=== PATIENT | female | born 1975 | race Caucasian/White ===

== ENCOUNTER → 2023-07-24 07:31 | Outpatient (REF) | payer OTHER, SELFPAY | LOC: PAVMRI 07:31 | PROVIDERS: ATTENDING PHYSICIAN Obstetrics & Gynecology; FAMILY PHYSICIAN Family Medicine | DX: D25.9 Leiomyoma of uterus, unspecified (principal); N92.0 Excessive and frequent menstruation with regular cycle | CPT/HCPCS: 72197; A9575 ==

== ENCOUNTER → 2023-07-31 13:46 | Outpatient (REF) | payer OTHER, SELFPAY | LOC: RADI 13:46 | PROVIDERS: ATTENDING PHYSICIAN Obstetrics & Gynecology; FAMILY PHYSICIAN Family Medicine | DX: D25.9 Leiomyoma of uterus, unspecified (principal) ==

== ENCOUNTER 2023-10-11 06:51 | Outpatient (REF) | payer OTHER, SELFPAY ==
[2023-10-11] VITALS (9 sets, daily range): BP systolic 71–105; BP diastolic 57–78; BMI 23.5
[2023-10-11 07:28] LABS: HCG, Urine Qualitative Screen Negative
[2023-10-11 07:32] LABS: Hematocrit 41.2 % (37.0-47.0); Hemoglobin 13.7 g/dL (12.0-16.0); Mean Corp Hgb Conc. 33.3 g/dL (33.0-37.0); Mean Corpuscular Volume 96.3 fL (81.0-99.0); Mean Platelet Volume 10.2 fL (7.4-10.4); Platelet Count 246 10^3/uL (130-400); Red Blood Cell Count 4.28 10^6/uL (4.20-5.40); Red Cell Dist. Width 13.2 % (11.5-14.5); White Blood Cell Count 7.8 10^3/uL (4.8-10.8)
[2023-10-11 07:36] LABS: Blood Urea Nitrogen 18 mg/dl (7-17); Estimated Creatinine Clearance 84 ml/min
[2023-10-11] MEDS: ANCEF 10 IV (08:10)
[2023-10-11] MEDS: ATIVAN 1 MG PO (08:11)
[2023-10-11] MEDS: BENADRYL 25 MG IV (08:11)
[2023-10-11] MEDS: OXYCONTIN (CONTROLLED RELEASE) 10 MG PO (08:11)
[2023-10-11] MEDS: ZOFRAN 8 MG PO (08:12)
[2023-10-11] MEDS: DECADRON 10 MG IV (08:24)
[2023-10-11] MEDS: COMPAZINE 10 MG PO (08:24)
[2023-10-11] MEDS: NSS 1000 IV (08:30)
[2023-10-11] MEDS: TORADOL 10 MG IV (13:44)
--- NOTE | 2023-10-11 15:29 | PTCARENOTE ---
Patient assisted OOB to bathroom. Joycelyn care performed. Fonseca catheter removed. Assisted into chair. at bedside. Patient instructed to ring call blackburn when wanting to get back into bed or will check on patient again shortly. No pain at needle
insertion site. Patient complaining of mild pain in her right buttocks area. Will continue to monitor. Positive femoral and pedal pulses and extremities warm to touch.
--- NOTE | 2023-10-11 16:57 | W.PN.UPDATE ---
Update Note
Progress Note Update
Patient is feeling well following UAE. She has some pain in her right buttock, thigh, and groin, and mild crampy lower abdominal pain. Minimal nausea.
No right groin hematoma.
Fonseca is out, she was able to urinate afterward.
OK for discharge tonight. All questions answered. OK to restart Xarelto tomorrow morning, she should take all other medications today.
== END 2023-10-11 17:30 | disposition home or self-care (01) ==
LOC: RADI 06:51
PROVIDERS: ATTENDING PHYSICIAN Radiology Vascular & Interventional Radiology; FAMILY PHYSICIAN Family Medicine
DX: D25.9 Leiomyoma of uterus, unspecified (principal); N92.1 Excessive and frequent menstruation with irregular cycle
CPT/HCPCS: 36247; 36415; 37243; 75736; 76377; 76937; 81025; 82565; 84520; 85027; 85610; 99152; 99153; C1769

== ENCOUNTER 2023-10-14 00:11 | Emergency (ER) | payer OTHER, SELFPAY ==
[2023-10-14 00:17] VITALS: BP 114/76
--- NOTE | 2023-10-14 00:41 | ED.GENMED ---
History of Present Illness
<VIKTOR Chapman - Last Filed: 10/14/23 01:02>
General
Chief Complaint: Post Operative Problem(s)
Source: patient
Exam Limitations: none
Time Seen by Provider: 10/14/23 00:23
Travel History
Have you had any contact with someone who has COVID-19?: No
Do you have any symptoms of coronavirus? Fever > 100 degrees, chills, cough, shortness of breath, sore throat, loss of taste or smell, muscle aches, or headache?: No
History of Present Illness
History of Present Illness:
48 YO F with PMH of Factor V Leiden, S/P uterine embolization x 2 days presents for worsening right-sided pelvic pain radiating into her right groin, and vaginal area x 2 days. Pt reports her pain started on after the procedure. On Sunday,
she was able to manage the pain. On Sunday, she took lidocaine and Percocet without much relief. She describes the pain as sharp and searing. She rates her severity a 10/10. Pt reports her highest temperature as 99 degrees Fahrenheit. Pt states
her last menstrual period was on . She states she had a tampon in during the procedure. Reports associated numbness in her right foot. Last bowel movement 10/13/23 at 12 p.m.
Pt reports associated nausea. Denies chest pain, SOB, V, and diarrhea.
Review of Systems
<VIKTOR Chapman - Last Filed: 10/14/23 01:02>
Review of Systems
Constitutional: Reports no symptoms
EENT: Reports no symptoms
Respiratory: Reports no symptoms
Cardiac: Reports no symptoms
ABD/GI: Reports abdominal pain and nausea
: Reports discharge
Musculoskeletal: Reports joint pain
Neurological: Reports no symptoms
Hematologic/Lymphatic: Reports other (Factor V Leiden on Xarelto)
Phy Exam
<Kimber Foster, [facility] - Last Filed: 10/14/23 01:02>
Physical Exam
Physical Exam:
Abdominal tenderness in the suprapubic area and RLQ
Tenderness along the right hip into the right groin and vaginal area
Normal S1 and S2, breath sounds are equal b/l on anterior lungs, unable to get posterior lungs
Sensitivity intact of right foot, pt able to wiggle her toes, states right foot feels the same as left foot
General Physical Exam
General Presentation: severe distress
General age: appears stated age
General Skin: warm and dry
General Habitus: normal
General Mental: alert
Cardiovascular Exam
Cardiovascular Exam: regular rate/rhythm
Pulmonary Exam
Pulmonary Exam: lungs clear
Genitourinary Exam Female
Exam Female: vaginal discharge (Reported per patient)
Neurological Exam
Neurological Exam: alert, oriented x3 and speech normal
Course
<Kimber Foster, [facility] - Last Filed: 10/14/23 01:02>
Orders/Labs/Results
Orders:
Orders
10/14/23 00:54
Ondansetron Injectable [Zofran] 4 mg .ROUTE .STK-MED ONE
Ondansetron Injectable [Zofran] 4 mg .ROUTE .STK-MED ONE
10/14/23 00:55
HYDROmorphone [Dilaudid] 1 mg .ROUTE .STK-MED ONE
HYDROmorphone [Dilaudid] 1 mg .ROUTE .STK-MED ONE
10/14/23 00:56
HYDROmorphone [Dilaudid] 1 mg IV NOW STA
Ondansetron Injectable [Zofran] 4 mg IV NOW STA
10/14/23 01:05
CT Abd/pelvis W Iv Cont Urgent
Comment:
Reason For Exam: right sided pelvic pain after procedure
Complete Blood Count/With Diff Urgent
Comprehensive Metabolic Panel Urgent
Lactic Acid Urgent
PT/INR [Prothrombin Time] Urgent
PTT Urgent
0.9% Sodium Chloride 1000 ml [Nss] 1,000 ml IV BOLUS
10/14/23 03:46
Oxycodone/Acetaminophen [Percocet 5/325] 1 tablet PO NOW STA
Abnormal Lab Results
10/14/23
01:05
WBC 11.4 H 10^3/uL
(4.8-10.8)
MCH 32.4 H pg
(27.0-31.0)
Abs Immat Gran (auto) 0.1 H 10^3/uL
(0-0.05)
Absolute Neuts (auto) 9.0 H 10^3/uL
(1.4-6.5)
Absolute Monos (auto) 0.7 H 10^3/uL
(0.1-0.6)
Neutrophils % 79.1 H %
(42.2-75.2)
Lymphocytes % 12.6 L %
(20.5-51.1)
Potassium 3.4 L mmol/L
(3.5-5.1)
Chloride 108 H mmol/L
(98-107)
Carbon Dioxide 20 L mmol/L
(22-30)
Glucose 146 H mg/dl
(70-99)
Lactic Acid 2.2 H mmol/L
(0.7-2.0)
10/14/23 01:05
10/14/23 01:05
Vital Signs
Initial and Last Documented VS:
Initial Vital Signs
Temp Pulse Resp BP Pulse Ox
98.4 F 62 16 114/76 99
10/14/23 00:17 10/14/23 00:17 10/14/23 00:17 10/14/23 00:17 10/14/23 00:17
Last Documented Vital Signs
Temp Pulse Resp BP Pulse Ox
98 F 49 15 99/68 99
10/14/23 00:50 10/14/23 03:00 10/14/23 03:00 10/14/23 03:00 10/14/23 00:50
<Lenny Thompson, DO - Last Filed: 10/14/23 03:49>
Orders/Labs/Results
Orders:
Orders
10/14/23 00:54
Ondansetron Injectable [Zofran] 4 mg .ROUTE .STK-MED ONE
Ondansetron Injectable [Zofran] 4 mg .ROUTE .STK-MED ONE
10/14/23 00:55
HYDROmorphone [Dilaudid] 1 mg .ROUTE .STK-MED ONE
HYDROmorphone [Dilaudid] 1 mg .ROUTE .STK-MED ONE
10/14/23 00:56
HYDROmorphone [Dilaudid] 1 mg IV NOW STA
Ondansetron Injectable [Zofran] 4 mg IV NOW STA
10/14/23 01:05
CT Abd/pelvis W Iv Cont Urgent
Comment:
Reason For Exam: right sided pelvic pain after procedure
Complete Blood Count/With Diff Urgent
Comprehensive Metabolic Panel Urgent
Lactic Acid Urgent
PT/INR [Prothrombin Time] Urgent
PTT Urgent
0.9% Sodium Chloride 1000 ml [Nss] 1,000 ml IV BOLUS
10/14/23 03:46
Oxycodone/Acetaminophen [Percocet 5/325] 1 tablet PO NOW STA
Abnormal Lab Results
10/14/23
01:05
WBC 11.4 H 10^3/uL
(4.8-10.8)
MCH 32.4 H pg
(27.0-31.0)
Abs Immat Gran (auto) 0.1 H 10^3/uL
(0-0.05)
Absolute Neuts (auto) 9.0 H 10^3/uL
(1.4-6.5)
Absolute Monos (auto) 0.7 H 10^3/uL
(0.1-0.6)
Neutrophils % 79.1 H %
(42.2-75.2)
Lymphocytes % 12.6 L %
(20.5-51.1)
Potassium 3.4 L mmol/L
(3.5-5.1)
Chloride 108 H mmol/L
(98-107)
Carbon Dioxide 20 L mmol/L
(22-30)
Glucose 146 H mg/dl
(70-99)
Lactic Acid 2.2 H mmol/L
(0.7-2.0)
10/14/23 01:05
10/14/23 01:05
Vital Signs
Initial and Last Documented VS:
Initial Vital Signs
Temp Pulse Resp BP Pulse Ox
98.4 F 62 16 114/76 99
10/14/23 00:17 10/14/23 00:17 10/14/23 00:17 10/14/23 00:17 10/14/23 00:17
Last Documented Vital Signs
Temp Pulse Resp BP Pulse Ox
98 F 49 15 99/68 99
10/14/23 00:50 10/14/23 03:00 10/14/23 03:00 10/14/23 03:00 10/14/23 00:50
<VIKTOR Chapman - Last Filed: 10/14/23 01:02>
MDM/Problems Addressed
Differential Diagnosis Includes:
Infection post uterine fibroid embolization, UTI, appendicitis, DVT, PE
MDM/Problems Addressed:
Worsening pain in the right pelvic area with radiation to the right groin - status post uterine fibroid embolization x 2 days
Chronic conditions affecting care: Other (Factor V Leiden)
<VIKTOR Chapman - Last Filed: 10/14/23 01:02>
*Critical Care Note
Total Time (30-74mins, 75-104mins- exclusive of procedures): Not Applicable
<Lenny Thompson DO - Last Filed: 10/14/23 03:49>
Update Note
Update Note:
CT ABDOMEN/PELVIS WITH CONTRAST
IMPRESSION:
1. No acute abnormality within the abdomen or pelvis.
2. Status post uterine fibroid embolization without evidence of posttreatment complication. No evidence of active hemorrhage within limitations of examination.
Incidentals:
-No bowel obstruction. Normal gallbladder and appendix.
- No obstructive uropathy.
- No hepatic or pancreatic mass.
- No abdominal aortic aneurysm.
- No acute osseous abnormality. Evidence of prior L5-S1 posterior fusion without evidence of postoperative complication.
- No acute abnormality within the visualized lungs.
- No acute abnormality within the visualized soft tissues.
10/14/2023 0233 AM: Patient is resting comfortably, in minimal acute distress at this time. She will continue to be observed.
ED Attending Note
<VIKTOR Chapman - Last Filed: 10/14/23 01:02>
-
Portions of this chart may have been created with voice recognition software.� Occasional wrong word or��sound alike� substitutions may have occurred due to the inherent limitations of voice recognition software.
<Lenny Thompson DO - Last Filed: 10/14/23 03:49>
ED Attending Note
Patient seen and examined by attending physician: Yes
I performed the substantive portion of visit, reviewed & personally made and approve the management plan that is documented in note by myself or MOOK.: Yes
ED Attending Note:
Pleasant 48-year-old female presents with right flank pain after uterine embolization by interventional radiology 2 days ago. She states that the pain has been present since the procedure ended, it has worsened since. Patient was able to manage
her pain with Percocet and lidocaine. Today the pain was much more severe. Denies fever. Last menstrual period was at the time of the procedure, it was ending. She did have a bowel movement at noon on Sunday. Patient was seen in
conjunction with the PA student. I have reviewed and agree with the history and treatment plan presented. On my independent physical exam, patient is awake, alert, and oriented x3, moderate acute distress. Heart is regular rate rhythm lungs are
clear to auscultation bilaterally without wheezes rales or rhonchi. Abdomen is soft right lower quadrant and right pelvic tenderness to palpation.
Spoke with Dr. Tera Gonzalez, interventional radiology who reviewed the CT scan. He feels that patient can follow-up as an outpatient. Patient is in agreement.
Patient to be discharged home. She request 1 Percocet to be administered while in the ER as she has 1/2-hour trip home.
Discussed return to ER instructions with patient and . They verbalized good understanding of instructions. I feel that they understand. They will return as needed.
Discharge Plan
Departure
Patient Disposition: Home (Routine Discharge)
Date of Disposition: 10/14/23
Time of Disposition: 03:47
Patient with high blood pressure during this ER visit?: No
Condition: Good
Discharge Problem:
Post-operative pain
Instructions: Postoperative Pain (DC)
Prescriptions:
No Action
multivitamin Tablet
1 tab PO DAILY
mesalamine [Apriso] 0.375 gram Capsule,Extended Release 24hr
1.5 g PO DAILY
Zyrtec 10 mg Capsule
10 mg PO DAILY PRN (Reason: allergies)
Xarelto 10 mg Tablet
10 mg PO DAILY
lidocaine 4 % Adhesive Patch,Medicated
1 patch TOPICAL BID PRN (Reason: pain)
oxycodone-acetaminophen [Percocet] 5-325 mg Tablet
1 tab PO Q4H PRN (Reason: pain)
Referrals:
Tasha Ball, DO [Active] -
Rodo Webster MD [Family Provider] -
Tera Gonzalez MD [Active] - As needed
Activity Restrictions/Additional Instructions:
Please continue to take your Percocet as directed
It was a pleasure meeting you and taking part in your care. We hope for your continued healing and wellness.
Please read discharge instructions in their entirety. However, they are for general education and may not describe your exact diagnosis at discharge. Information on your ER visit and medical conditions were discussed with you along with appropriate
follow up information...
If indicated, please take your medications as instructed and indicated on discharge paperwork.
Please schedule a follow up appointment as directed. Call to schedule an appointment
Please return to the emergency department with ANY change in, persisting, or worsening of symptoms. If any of your symptoms do not improve, or persist, or become more severe within 6-12 hours, please return to the emergency department for further
care.
Please return to the emergency department if you develop a headache, neck pain/stiffness, fever greater than 100.4F, chest pain, shortness of breath, persistent nausea, vomiting, slurred speech, difficulty walking, numbness/tingling, weakness, signs
of infection or any other symptoms that are worrisome to you.
If you have any questions or concerns please do not hesitate to call the Hospital at or E-mail me directly at [email or web address]
Interventions
Interventions:
*Risk Screen - Suicide Last Done: 10/14/23 00:17
*General Assessment Last Done: 10/14/23 00:17
*Neglect/Abuse Screening Last Done: 10/14/23 00:17
ED- Fall Risk Assessment Last Done: 10/14/23 01:16
*ED COVID-19 Vaccine History Last Done: 10/14/23 00:24
ED-Skin Assessment Last Done: 10/14/23 01:16
Discharge Date and Time
Print Language: CENTRAL AFRICAN
[2023-10-14 00:43] VITALS: BMI 25.0
--- NOTE | 2023-10-14 00:44 | EDRN ---
Pt had fibroid embolization done on . Pt having 'excruciating' pain at site and it stabs and rotates around R hip into R back near iliac crest into buttocks. Searing pain into thigh and into groin/vagina. Pt has been using lidocaine
patch. On Sunday pt took tylenol and percocet. Pt unable to find comfortable position, only thing that helps pain is breathing. Pt has Factor 5, hx PE and DVTs. Period ending prior to procedure. No bleeding since procedure. Pt wearing panty
liner for intermittent serum discharge. No cp, sob, abd pain, n/v, fever/chills/cough. Pt has numbness/tingling in her hands and feels lightheaded. Pt has not been able to eat, tried to get crackers down.
[2023-10-14 00:50] VITALS: BP 111/71
[2023-10-14] MEDS: ZOFRAN 4 MG IV (01:02)
[2023-10-14] MEDS: NSS 1000 IV (01:07)
[2023-10-14] MEDS: DILAUDID 1 MG IV (01:09)
[2023-10-14 01:12] LABS: % Basophils 0.5 % (0-2); % Eosinophils 1.2 % (0-6); % Immature Granulocytes 0.5 % (0-0.5); % Lymphocytes 12.6 % (20.5-51.1); % Monocytes 6.1 % (1.7-9.3); % Neutrophils 79.1 % (42.2-75.2); Absolute Basophils 0.1 10^3/uL (0-0.2); Absolute Eosinophils 0.1 10^3/uL (0-0.7); Absolute Immature Granulocytes 0.1 10^3/uL (0-0.05); Absolute Lymphocytes 1.4 10^3/uL (1.2-3.4); Absolute Monocytes 0.7 10^3/uL (0.1-0.6); Hemoglobin 13.8 g/dL (12.0-16.0); Mean Corp Hgb Conc. 36.3 g/dL (33.0-37.0); Mean Corpuscular Hgb 32.4 pg (27.0-31.0); Mean Corpuscular Volume 89.2 fL (81.0-99.0); Mean Platelet Volume 10.3 fL (7.4-10.4); Nucleated Red Blood Cells % 0 %; Platelet Count 233 10^3/uL (130-400); Red Blood Cell Count 4.26 10^6/uL (4.20-5.40); Red Cell Dist. Width 13.1 % (11.5-14.5); White Blood Cell Count 11.4 10^3/uL (4.8-10.8)
[2023-10-14 01:25] LABS: ALT (SGPT) 18 U/L (0-35); AST (SGOT) 25 U/L (14-36); Albumin 4.3 g/dl (3.5-5.0); Alkaline Phosphatase 74 U/L (38-126); Blood Urea Nitrogen 9 mg/dl (7-17); Calcium 9.7 mg/dl (8.4-10.2); Carbon Dioxide 20 mmol/L (22-30); Chloride 108 mmol/L (98-107); Estimated Creatinine Clearance 96 ml/min; Glucose 146 mg/dl (70-99); Lactic Acid 2.2 mmol/L (0.7-2.0); Potassium 3.4 mmol/L (3.5-5.1); Sodium 139 mmol/L (135-145); Total Bilirubin 0.7 mg/dl (0.2-1.3); Total Protein 6.7 g/dl (6.3-8.2); eGFR > 60.00
[2023-10-14 01:35] LABS: INR 1.03; PT 13.3 Sec (11.4-14.6)
[2023-10-14 01:36] LABS: APTT 25.2 Sec (23.4-35.0)
[2023-10-14 01:38] VITALS: BP 94/66
[2023-10-14 02:12] VITALS: BP 100/77
[2023-10-14 03:00] VITALS: BP 99/68
--- NOTE | 2023-10-14 03:38 | EDRN ---
Pt says she wants to go home. Dr Thompson aware and will be in to speak with pt and pt informed she is waiting for physician to speak with her. Pt asked about bandaid she has on R femoral area stating she was not given instructions on when to
remove/change it. Dr Thompson told this RN to not remove the bandaid.
[2023-10-14] MEDS: PERCOCET 5/325 1 TABLET PO (03:54)
== END 2023-10-14 04:05 | disposition home or self-care (01) ==
LOC: EMR 00:11
PROVIDERS: EMERGENCY PHYSICIAN Student in an Organized Health Care Education/Training Program; FAMILY PHYSICIAN Family Medicine
DX: G89.18 Other acute postprocedural pain (principal); R10.2 Pelvic and perineal pain; R11.0 Nausea; R20.0 Anesthesia of skin; R10.9 Unspecified abdominal pain; N89.8 Other specified noninflammatory disorders of vagina; D68.51 Activated protein C resistance; Z98.890 Other specified postprocedural states; Z98.1 Arthrodesis status; Z79.01 Long term (current) use of anticoagulants
CPT/HCPCS: 99285; 96375; 96361; 96374; 74177; 80053; 83605; 85025; 85610; 85730; Q9967